=== PATIENT | male | born 1950 ===

== ENCOUNTER 2022-08-04 05:30 | Day surgery (SDC) | payer OTHER | END 2022-08-04 12:45 | disposition home or self-care (01) | LOC: AMB-ENDOS 05:30 | PROVIDERS: ATTEND Surgery | DX: D12.3 Benign neoplasm of transverse colon (principal); K57.30 Diverticulosis of large intestine without perforation or abscess without bleeding; K92.1 Melena; Z20.822 Contact with and (suspected) exposure to COVID-19 ==